=== PATIENT | male | born 1965 | race Hispanic/Latino ===

== ENCOUNTER 2021-01-14 12:17 | Observation (INO) | payer OTHER ==
[~2021-01-14] VITALS: Ht 165.1 cm; Wt 121.6 kg
[2021-01-14 13:04] LABS: BASOPHILS % (AUTO) 0.3 % (0.0-5.0); EOSINOPHILS % (AUTO) 0.1 % (0.0-8.0); HEMATOCRIT 41.6 % (42-54); MEAN CORPUSCULAR HEMOGLOBIN 29.7 pg (27.0-33.0); MEAN CORPUSCULAR HGB CONC 33.7 g/dL (32.0-36.0); MEAN CORPUSCULAR VOLUME 88.1 fL (79-99); MONOCYTES % (AUTO) 6.2 % (3.0-13.0); NEUTROPHILS % (AUTO) 82.9 % (40.0-77.0); PLATELET COUNT (AUTO) 202 K/uL (130-400); RED BLOOD CELL COUNT(AUTO) 4.72 MIL/uL (4.50-6.20); RED CELL DISTRIBUTION WIDTH 14.1 % (11.0-15.5); WHITE BLOOD COUNT (AUTO) 19.1 K/uL (4.8-10.8)
[2021-01-14 13:07] LABS: APPEARANCE,URINE Cloudy (CLEAR); BILIRUBIN,URINE Small (NEGATIVE); COLOR,URINE Dark Yellow (YELLOW); GLUCOSE, URINE (UA) Negative (NEGATIVE); KETONES,URINE Trace mg/dL (NEGATIVE); LEUKOCYTE ESTERASE ,URINE Moderate (NEGATIVE); NITRATE,URINE Negative (NEGATIVE); OCCULT BLOOD,URINE Small (NEGATIVE); PROTEIN,URINE POS 2+ mg/dL (NEGATIVE)
[2021-01-14 13:19] LABS: ALBUMIN 3.1 g/dL (3.5-5.0); BILIRUBIN,TOTAL 0.8 mg/dL (0.2-1.0); CREATININE 1.2 mg/dL (0.5-1.5); TOTAL PROTEIN, SERUM 7.4 g/dL (6.0-8.3)
[2021-01-14 13:23] LABS: BACTERIA,URINE Rare /HPF (None Seen); POTASSIUM 2.9 mmol/L (3.5-5.1); RBC,URINE 0-1 /HPF (0-1); SQUAMOUS EPITHELIAL CELL,UR Rare /HPF (0-2); WBC,URINE >100 /HPF (0-1)
[2021-01-14] MEDS: 1/2 NS 1000ML 1,000 ML IV SCH (13:48)
[2021-01-14] MEDS ORDERED: CEFTRIAXONE 1G VIAL IVP SCH (14:30)
[2021-01-14] MEDS ORDERED: IOHEXOL 350 MG/ML 100ML INFUS..BTL IV ONE (14:32)
[2021-01-14] MEDS ORDERED: METRONIDAZOLE 500 MG TABLET ONE (15:28)
[2021-01-14] MEDS ORDERED: KCL 20 MEQ ERTAB PO ONE (15:31)
[2021-01-14] MEDS: METRONIDAZOLE 500MG/100ML BAG 100 ML IVPB SCH ×2 (15:33→23:30)
[2021-01-14] MEDS ORDERED: LIDOCAINE HCL-MPF 1% 2ML VIAL IV PRN (16:00)
[2021-01-14] MEDS ORDERED: POTASSIUM CHLORIDE 10% ELIXIR 20 MEQ/15 ML UDCUP PO PRN (16:00)
[2021-01-14] MEDS ORDERED: POTASSIUM CHLORIDE 20MEQ/100ML 100 ML IV PRN (16:00)
[2021-01-14] MEDS: KCL 20 MEQ ERTAB PO PRN ×3 (16:41→23:21)
[2021-01-14 20:00] VITALS: BP 137/57
[2021-01-14] MEDS ORDERED: ACETAMINOPHEN 325 MG TAB PO PRN ×2 (22:00)
[2021-01-14 23:38] VITALS: BP 148/61
[2021-01-15 04:08] VITALS: BP 175/90
[2021-01-15] MEDS: 1/2 NS 1000ML 1,000 ML IV SCH (04:41)
[2021-01-15] MEDS: METRONIDAZOLE 500MG/100ML BAG 100 ML IVPB SCH (04:42)
[2021-01-15 05:49] LABS: BASOPHILS % (AUTO) 0.4 % (0.0-5.0); EOSINOPHILS % (AUTO) 0.6 % (0.0-8.0); HEMATOCRIT 39.2 % (42-54); LYMPHOCYTES % (AUTO) 16.4 % (21.0-51.0); MEAN CORPUSCULAR HEMOGLOBIN 28.8 pg (27.0-33.0); MEAN CORPUSCULAR HGB CONC 33.4 g/dL (32.0-36.0); MEAN CORPUSCULAR VOLUME 86.2 fL (79-99); MONOCYTES % (AUTO) 11.8 % (3.0-13.0); NEUTROPHILS % (AUTO) 70.1 % (40.0-77.0); PLATELET COUNT (AUTO) 230 K/uL (130-400); RED BLOOD CELL COUNT(AUTO) 4.55 MIL/uL (4.50-6.20); WHITE BLOOD COUNT (AUTO) 13.5 K/uL (4.8-10.8)
[2021-01-15 06:19] LABS: ALBUMIN 2.6 g/dL (3.5-5.0); BILIRUBIN,DIRECT 0.2 mg/dL (0.0-0.3); BILIRUBIN,TOTAL 0.8 mg/dL (0.2-1.0); CREATININE 0.9 mg/dL (0.5-1.5); TOTAL PROTEIN, SERUM 6.4 g/dL (6.0-8.3)
[2021-01-15] MEDS: KCL 20 MEQ ERTAB PO PRN ×2 (06:50→09:56)
[2021-01-15 08:19] VITALS: BP 176/89
[2021-01-15] MEDS ORDERED: AMLO-257 PO (09:13)
[2021-01-15] MEDS ORDERED: TAMS-1 PO (09:14)
[2021-01-15] MEDS ORDERED: ATOR40TA71 PO (09:15)
[2021-01-15] MEDS ORDERED: LISI40TA9 PO (09:16)
[2021-01-15] MEDS ORDERED: SEMA1PEN3 SQ (09:19)
[2021-01-15] MEDS ORDERED: HYDR25TA PO (09:19)
[2021-01-15] MEDS ORDERED: MONT-39 PO (09:20)
[2021-01-15] MEDS ORDERED: CLON.3P TD (09:21)
[2021-01-15] MEDS ORDERED: ACET-2247 PO (09:24)
[2021-01-15] MEDS ORDERED: ACETAMINOPHEN 325 MG TAB PO SCH (14:00)
[2021-01-15] MEDS ORDERED: LISINOPRIL 40 MG TABLET PO SCH (14:00)
[2021-01-15] MEDS ORDERED: ATORVASTATIN 40 MG TABLET PO SCH (21:00)
[2021-01-16] MEDS ORDERED: MONTELUKAST SODIUM 10 MG TAB PO SCH (09:00)
[2021-01-16] MEDS ORDERED: CLONIDINE 0.3 MG/ 24 HR PATCH TD SCH (09:00)
[2021-01-16] MEDS ORDERED: TAMSULOSIN HCL 0.4 MG CAP.ER.24H PO SCH (09:00)
[2021-01-16] MEDS ORDERED: HYDROCHLOROTHIAZIDE 25 MG TABLET PO SCH (09:00)
[2021-01-16] MEDS ORDERED: AMLODIPINE 5 MG TAB PO SCH (09:00)
[2021-01-16] MEDS ORDERED: SEMAGLUTIDE 2 MG SQ SCH (09:00)
== END 2021-01-15 11:10 | disposition home or self-care (01) ==
LOC: EDH 12:17 → EDHIP 13:07 → 3DH 17:04
PROVIDERS: ADMIT Internal Medicine; ATTEND Internal Medicine
DX: A41.9 Sepsis, unspecified organism (principal)
CPT/HCPCS: 36415 ×2; 71260; 74177; 80053 ×2; 81001; 82248; 85025 ×2; 87040 ×2; 87088; 96361; 96365; 96366; 96375; G0378 ×22; G0379; J0696; J3490; Q9967